=== PATIENT | female | born 1975 | race Caucasian/White ===

== ENCOUNTER 2016-12-13 12:53 | Emergency (ER) | payer OTHER ==
[~2016-12-13] VITALS: Ht 157.5 cm; Wt 77.1 kg
[~2016-12-13 12:53] MED LIST: ATIVAN0.5 M1 PO; FLEXERIL10 MG PO; IBUPROFEN800 MG PO; LAMOTRIGINE200 M2 PO; LIDODERM 5% PAT1 PAT TOP; LIORESAL 10MG T10 MG PO; LISINOPRIL2.5 MG PO; MEDROL DOSEPAK1 PA1 PO; MOBIC 15MG15 MG PO; MOBIC15 MG PO; NORCO 325 MG-51 TAB PO; NORFLEX100 MG PO; OMEPRAZOLE20 M2 PO; PERCOCET 325 MG1 TA2 PO; PREDNISONE 10MG10 M1 PO; SEROQUEL XR150 M1 PO; SYMBICORT 160/41 PUF INH; TESSALON PERLE100 MG PO; TOPAMAX100 M1 PO; TRAMADOL50 MG PO; TRAZODONE HCL100 M1 PO; ULTRAM(MONOGRAP50 MG PO; ZITHROMAX Z-PA250 M1 PO; ZOLPIDEM TARTRA10 M1 PO
[2016-12-13 12:57] VITALS: BP 138/91
--- NOTE | 2016-12-13 13:21 | ED INFLUENZA/URI COMPLAINT ---
History of Present Illness General Chief Complaint: Upper Respiratory Sx/Fever Stated Complaint: ?UPPER RESP INFECTION X 2 WEEKS Source: patient, old records Exam Limitations: no limitations Vital Signs & Intake/Output Vital Signs & Intake/Output Vital Signs Date Time Temp Pulse Resp B/P B/P Pulse O2 O2 Flow FiO2 Mean Ox Delivery Rate 12/13 1257 98.1 85 18 138/91 99 Room Air Allergies Coded Allergies: NO KNOWN ALLERGIES (NKA) (06/20/15) Reconcile Medications Azithromycin (Zithromax) 250 MG TABLET 1 DP PO AD BRONCHITIS 2 the first day followed by 1 for days 2-5 Baclofen (Lioresal) 10 MG TAB 1 TAB PO TIDPRN PRN muscle strain Codeine Phosphate/Guaifenesi (Guaifen-Codeine 100-10 MG/5 Ml) 10 MG-100 MG/5 ML LIQUID 10 ML PO Q6HR PRN COUGH CYCLOBENZAPRINE HCL (Flexeril) 10 MG TAB 1 TAB PO 4 TIMES/DAY PRN MUSCLE SPASM Ibuprofen 800 MG TAB 1 TAB PO 4 TIMES/DAY PRN PAIN Lamotrigine 200 MG TABLET 1 TAB PO DAILY MENTAL HEALTH (Reported) Lorazepam 0.5 MG TABLET 1 TAB PO TID PRN ANXIETY (Reported) Methylprednisolone (Medrol) 1 PAC PAC 0 PO SEE ADMIN CRITERIA neck pain Methylprednisolone. (Medrol) 4 MG TAB.DS.PK 1 DP PO AD BRONCHITIS 6 on day 1 then reduce by one tablet daily until gone Omeprazole 20 MG ECC 1 CAP PO DAILY GI (Reported) OXYCODONE HCL/ACETAMINOPHEN (Percocet 5-325 MG Tablet) 325 MG/5 MG TAB 1-2 TAB PO Q4-6 PRN PRN PAIN Quetiapine Fumarate (Seroquel XR) [address] 1 TAB PO QPM MENTAL HEALTH ( Reported) Topiramate (Topamax 100MG) 100 MG TABLET 1 TAB PO QPM SLEEP (Reported) TRAMADOL HCL (Tramadol) 50 MG TAB 1 TAB PO DAILY PAIN (Reported) Tramadol HCl (Ultram) 50 MG TAB 1-2 TAB PO Q6 PRN severe pain TRAZODONE HCL (Trazodone HCl) 100 MG TABLET 1 TAB PO QPM PRN SLEEP (Reported) Zolpidem Tartrate 10 MG TAB 1 TAB PO QPM SLEEP (Reported) Triage Note: 41 YO FEMALE TO TRIAGE C/O COUGH AND CONGESTION X APPROX 2 WEEKS. STATES COUGH IS PRODUCTIVE. AFEBRILE Triage Nurses Notes Reviewed? yes Onset: Gradual Duration: minute(s): (q), week(s): (2), constant Timing: recent history Severity: mild Severity Numbers: 5 Prior Episodes/Possible Cause: occassional episodes No Modifying Factors: none Associated Symptoms: denies : No Patient currently breastfeeds: No HPI: 41-year-old female with history of asthma presents to ER complaining of two-week history of a productive cough yellow sputum and rhinorrhea congestion. She's been using [id number] remedies without improvement. No shortness of breath fever chills chest pain hemoptysis. Patient is an active smoker 5 cigarettes a day no abdominal pain nausea vomiting or diarrhea. She is carefully symptoms until today. Nothing makes it better or worse. No modifying factors or associated symptoms otherwise (MARYCARMEN FLOWERS) Past History Travel History Traveled to [place] past 21 day No Medical History Any Pertinent Medical History? see below for history Neurological: NONE EENT: NONE Cardiovascular: NONE Respiratory: COPD Gastrointestinal: NONE Hepatic: NONE Renal: NONE Musculoskeletal: chronic back pain, disk herniation (CERVICAL) Psychiatric: bipolar disease, depression Endocrine: NONE . 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 No (MARYCARMEN FLOWERS) Review of Systems Review of Systems Constitutional: Reports: see HPI. All Other Systems: Reviewed and Negative Comments Review of systems: See HPI, All other systems negative. Constitutional, no chills no fever, no malaise no weight loss HEENT: No visual changes no sore throat no congestion, no ear pain Cardiovascular: No chest pain , no palpitation Skin: no rashes, no change in skin Respiratory: No dyspnea cough sputum no hemoptysis GI: No nausea no vomiting, no diarrhea, no bloating/constipation : No dysuria Muscle skeletal: No joint pain, no joint swelling, no back pain, no neck pain, Neurologic: No numbnessno headache Psych: No stress Heme/endocrine: No bruising Immunology: No lymphadenopathy (MARYCARMEN FLOWERS) Physical Exam Physical Exam General Appearance: well developed/nourished, alert, awake Ears, Nose, Throat: normal ENT inspection Comments: Well-developed well-nourished patient in no apparent distress. Head/Face: Atraumatic, no maxillary/frontal sinus tenderness, no facial swelling Eyes: PERRL, EOMI, no conjunctival injection. No nystagmus Ear:External auditory canal and Tympanic membranes clear, no erythema, no FB. Nose: atraumatic.Normal inspection: No bleeding, no septal hematoma Throat: Moist mucous membranes.Pharynx normal. No pharyngeal erythema/exudate seen. No stridor/drooling or assymetry. No swelling or edema. Neck: Supple, no lymphadenopathy, FROM Back: FROM Cardiovascular: Regular rate and rhythms no murmurs rubs or gallops, Respiratory: Chest nontender.There were no bony deformities, no asymmetry. No respiratory distress. Patient speaking in full complete sentences. Breath sounds clear to auscultation bilaterally: NO W/R/R Extremities: full range of motion Neuro: awake, alert, and oriented to person, place and time. There were no obvious focal neurologic abnormalities. Skin: Warm & dry;No appreciable rash on exposed skin Psych: Mood affect normal, normal memory normal judgment. Core Measures Severe Sepsis Present: No Septic Shock Present: No (MARYCARMEN FLOWERS) Progress Differential Diagnosis: influenza, pneumonia, pharyngitis, sinusitis, bronchitis Plan of Care: I had an extensive conversation regarding need for close follow up with their primary care physician this week as well as return precautions. I answered all of their questions, they feel comfortable with the plan and follow-up care. I discussed the medications that they will receive with the patient. I gave them signs and symptoms that could indicate an adverse reaction. I have advised them to limit their activities until they can see how they respond to the medication. Initial ED EKG: none (MARYCARMEN FLOWERS) Departure Departure Time of Disposition: 1327 Disposition: HOME OR SELF CARE Condition: Stable Clinical Impression Primary Impression: Bronchitis Referrals: DAR KIM,SHORTY Avila (PCP/Family) Additional Instructions: Z-Xavi as directed, off and S and with codeine use caution as this may make you drowsy. Medrol Dosepak as discussed stop smoking follow-up with your primary care physician and return with any concerns these prescriptions were sent to [facility] Departure Forms: Customer Survey General Discharge Information Prescriptions: Current Visit Scripts Codeine Phosphate/Guaifenesi (Guaifen-Codeine 100-10 MG/5 Ml) 10 ML PO Q6HR PRN COUGH #200 ML Azithromycin (Zithromax) 1 DP PO AD #6 TAB 2 the first day followed by 1 for days 2-5 Methylprednisolone. (Medrol) 1 DP PO AD #1 DP 6 on day 1 then reduce by one tablet daily until gone (MARYCARMEN FLOWERS) PA/LIBRARY PARAPROFESSIONAL Co-Sign Statement Statement: ED Attending supervision documentation- I saw and evaluated the patient. I have also reviewed all the pertinent lab results and diagnostic results. I agree with the findings and the plan of care as documented in the PA's/LIBRARY PARAPROFESSIONAL's documentation. x I have reviewed the ED Record and agree with the PA's/LIBRARY PARAPROFESSIONAL's documentation. [] Additions or exceptions (if any) to the PAs/LIBRARY PARAPROFESSIONAL's note and plan are summarized below: [] (MARSHA KIM,EDWAR)
[2016-12-13] MEDS ORDERED: GUAIFEN-CODEIN118 M1 PO (13:28)
[2016-12-13] MEDS ORDERED: MEDROL4 M2 PO (13:28)
[2016-12-13] MEDS ORDERED: ZITHROMAX250 M2 PO (13:28)
== END 2016-12-13 14:20 ==
LOC: ERH 12:53
DX: J40 Bronchitis, not specified as acute or chronic (principal); F17.210 Nicotine dependence, cigarettes, uncomplicated

== ENCOUNTER 2016-12-18 13:16 | Emergency (ER) | payer OTHER ==
[~2016-12-18] VITALS: Ht 157.5 cm; Wt 77.1 kg
[~2016-12-18 13:16] MED LIST changes: +GUAIFEN-CODEIN118 M1 PO; +MEDROL4 M2 PO; +ZITHROMAX250 M2 PO
[2016-12-18] MEDS ORDERED: DAILY MULTIPLE1 EACH PO (13:47)
--- NOTE | 2016-12-18 13:47 | ED GENERAL ADULT ---
History of Present Illness General Chief Complaint: General Adult Stated Complaint: DX WITH BRONCHITIS 12/13, SYMPTOMS NO BETTER Source: patient Exam Limitations: no limitations Vital Signs & Intake/Output Vital Signs & Intake/Output ED Intake and Output 12/19 0000 12/18 1200 Intake Total Output Total Balance Patient 170 lb Weight Weight Reported by Patient Measurement Method Allergies Coded Allergies: NO KNOWN ALLERGIES (NKA) (06/20/15) Reconcile Medications Albuterol Sulfate (Proair Hfa) 90 MCG HFA.AER.AD 2 PUF INH Q4-6 PRN PRN shortness of breath Codeine Phosphate/Guaifenesi (Guaifen-Codeine 100-10 MG/5 Ml) 10 MG-100 MG/5 ML LIQUID 10 ML PO Q6HR PRN COUGH Ibuprofen 800 MG TABLET 1 TAB PO TID PRN PAIN (Reported) Lamotrigine 200 MG TABLET 1 TAB PO DAILY MENTAL HEALTH (Reported) Lorazepam (Ativan) 0.5 MG TABLET 1 TAB PO BIDP PRN ANXIETY (Reported) Multivitamin (Daily Multiple Vitamin) 1 EACH TABLET 1 TAB PO DAILY VITAMIN SUPPORT (Reported) Omeprazole 20 MG CAPSULE.DR 1 CAP PO DAILY GI (Reported) Quetiapine Fumarate (Seroquel XR) 150 MG TAB.ER.24H 1 TAB PO QPM MENTAL HEALTH (Reported) Topiramate (Topamax) 100 MG TABLET 1 TAB PO QPM SLEEP (Reported) Trazodone HCl 100 MG TABLET 1 TAB PO QPM PRN SLEEP (Reported) Zolpidem Tartrate 10 MG TABLET 1 TAB PO QPM SLEEP (Reported) Triage Note: 41 Y/O FEMALE C/O BILATERAL FLANK PAIN X 1 WEEK. STATES SHE RECENTLY FINISHED COURSE OF ANTIBIOTICS FOR UTI AND WAS TOLD SHE COULD HAVE A KIDNEY INFECTION. ALSO FINISHED ANTIBIOTICS YESTERDAY FOR BRONCHITIS. AFEBRILE. Triage Nurses Notes Reviewed? yes Onset: 1 week ago Duration: day(s): Timing: constant : No Patient currently breastfeeds: No HPI: 41-year-old female with a history of COPD, bipolar disorder, anxiety, disc herniation, chronic back pain presenting with new cough productive of green sputum 1 week. Denies fevers or URI symptoms. Seen in the ED 5 days ago and diagnosed with bronchitis, given Z-Xavi and Medrol Dosepak which she has since finished without improvement. States that she has cut down on smoking, currently smoking 2-3 cigarettes per day. Patient also complaining of bilateral mid back pain 2-3 weeks. Recently treated by primary care provider for UTI, finished course of antibiotics with resolution of urinary symptoms. Reports sharp bilateral mid back pain that radiates to lower back, worse with movements and prolonged periods of sitting. States that back pain feels similar to her chronic chronic back pain, has not tried anything for pain relief at home. Denies fevers, IV drug use, saddle paresthesias, urinary/bowel incontinence/retention. (ADELFO KENNY PA-C) Past History Travel History Traveled to [place] past 21 day No Medical History Any Pertinent Medical History? see below for history Neurological: NONE EENT: NONE Cardiovascular: NONE Respiratory: COPD Gastrointestinal: NONE Hepatic: NONE Renal: NONE Musculoskeletal: chronic back pain, disk herniation (CERVICAL) Psychiatric: bipolar disease, depression Endocrine: NONE . 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 No (ADELFO KENNY PA-C) Review of Systems Review of Systems Constitutional: Denies: chills, fever, weakness. Respiratory: Reports: cough, sputum production, wheezing. Denies: hemoptysis. Cardiovascular: Denies: chest pain. GI: Denies: abdominal pain, diarrhea, nausea, vomiting. Genitourinary: Denies: discharge, dysuria, hematuria, urgency. (ADELFO KENNY PA-C) Physical Exam Physical Exam General Appearance: well developed/nourished, no apparent distress Head: atraumatic Respiratory: wheezing, No respiratory distress, no hypoxia, no tachypnea Cardiovascular: regular rate/rhythm Gastrointestinal: soft, non-tender, no CVA tenderness Back: normal inspection, normal range of motion, no vertebral tenderness Core Measures ACS in differential dx? No CVA/TIA Diagnosis: No Severe Sepsis Present: No Septic Shock Present: No (ADELFO KENNY PA-C) Progress Differential Diagnoses I considered the following diagnoses in my evaluation of the patient: [ Bronchitis versus COPD exacerbation versus pneumonia.] Following diagnoses were also considered: Musculoskeletal back strain versus pyelonephritis versus epidural abscess versus cauda equina. Plan of Care: Orders Procedure Date/time Status AEROSOL (GEN) 12/18 1426 Complete AEROSOL (GEN) 12/18 1416 Complete XRY-CHEST XRAY, PA AND LATERAL 12/18 1345 Active CULTURE,URINE 12/18 1325 Active URINALYSIS 12/18 1325 Complete Laboratory Tests 12/18/16 1343: Urinalysis LIGHT H, Urine Color YEL, Urine Clarity HAZY H, Urine pH 6.0, Ur Specific Okay >= 1.030, Urine Protein NEG, Urine Ketones NEG, Urine Nitrite NEG, Urine Bilirubin NEG, Urine Urobilinogen 0.2, Ur Leukocyte Esterase SMALL H , Ur Microscopic SEDIMENT EXAMINED, Urine RBC RARE, Urine WBC 3-5 H, Ur Epithelial Cells MANY H, Urine Bacteria MANY H, Urine Hemoglobin NEG, Urine Glucose NEG Microbiology 12/18 1343 URINE ROUT: Urine Culture - RECD Low suspicion for pneumonia but given return visit will check chest x-ray. Will treat with DuoNeb 3 to alleviate wheezing. --> CXR neg for PNA, pt already aware of pre-exisitng pulmonary nodules and is followed by her PMD. Given albuterol inhaler for symptomatic relief. No need for additional steroids or abx as pt just recently completed a sufficient course. Urine was not a clean catch, however was nitrite negative and only had 3-5 white blood cells. This combined with resolution of dysuria status post antibiotic course there is low suspicion for persistent UTI. Furthermore with absence of fevers or CVA tenderness there is low suspicion for pyelonephritis. Likely with acute on chronic musculoskeletal back pain. Instructed to apply warm compresses and use NSAIDs as needed for pain. (EFRAÍN FERNANDEZ,ADELFO) Initial ED EKG: none (EFRAÍN FERNANDEZ,ADELFO) Departure Departure Disposition: HOME OR SELF CARE Condition: Stable Clinical Impression Primary Impression: Bronchitis Referrals: DAR KIM,SHORTY Avila (PCP/Family) Departure Forms: Customer Survey General Discharge Information Prescriptions: Current Visit Scripts Albuterol Sulfate (Proair Hfa) 2 PUF INH Q4-6 PRN PRN shortness of breath #1 INHAL Comments Use two puffs of albuterol inhaler every 4-6 hours as needed for shortness of breath. Try to decrease tobacco use help alleviate symptoms. Her primary care provider for reevaluation. Return to the ED for any new or worsening symptoms. (EFRAÍN FERNANDEZ,ADELFO) PA/TOE FORMER Co-Sign Statement Statement: ED Attending supervision documentation- [] I saw and evaluated the patient. I have also reviewed all the pertinent lab results and diagnostic results. I agree with the findings and the plan of care as documented in the PA's/TOE FORMER's documentation. [x] I have reviewed the ED Record and agree with the PA's/TOE FORMER's documentation. [] Additions or exceptions (if any) to the PAs/TOE FORMER's note and plan are summarized below: [] (CONSTANTIN TELLEZ DO) Critical Care Note Critical Care Note Critical Care Time: non-applicable (EFRAÍN FERNANDEZ,ADELFO)
[2016-12-18] MEDS ORDERED: IBUPROFEN800 M1 PO (13:48)
[2016-12-18 15:32] VITALS: BP 119/81
[2016-12-18] MEDS ORDERED: PROAIR HFA8.5 GM INH (16:24)
--- NOTE | 2016-12-18 17:09 | RADIOLOGY REPORT ---
EXAMINATION: XR CHEST CLINICAL INFORMATION: Cough productive of green sputum. COMPARISON: 12/23/[address] 07/18/2016. TECHNIQUE: 2 views of the chest were obtained. FINDINGS: No gross consolidation or effusion. No large pulmonary mass. Recent cross-sectional imaging has demonstrated multiple subcentimeter pulmonary nodules. These are not evident on plain radiography. I would consider one additional 24-month of follow up chest CT this July to establish 2 years of stability. This appearance would be most consistent with metastatic disease, however I see no history of malignancy in the radiologic record. On CT, the nodules are somewhat rounded not the typical configuration of intraparenchymal lymph nodes however, CT also demonstrated a shotty increase in the number but not size of mediastinal lymph nodes. Hyalinizing pulmonary nodules can have this appearance. If there has been a hysterectomy (uterus present in 2009), review of uterine pathology advised to exclude low-grade uterine leiomyosarcoma. Cardiac and mediastinal contours are within normal limits and stable with no evidence of lymphadenopathy on plain radiography. Prior cervical fusion. No acute osseous finding. Normal gas pattern. IMPRESSION: No acute cardiopulmonary process. Prior CT scans of the chest have demonstrated multiple small indeterminate pulmonary nodules. Advise 24-month follow up with noncontrast CT scan of the chest in July 2017.
== END 2016-12-18 16:27 ==
LOC: ERH 13:16
DX: J40 Bronchitis, not specified as acute or chronic (principal); Z72.0 Tobacco use; M54.5 Low back pain
CPT/HCPCS: 1263; 81001; 87086

== ENCOUNTER 2018-01-30 15:20 | Emergency (ER) | payer OTHER ==
[~2018-01-30] VITALS: Ht 162.6 cm; Wt 78.0 kg
[~2018-01-30 15:20] MED LIST changes: +BACLOFEN10 M1 PO; +CHERATUSSIN AC118 M1 PO; +DAILY MULTIPLE1 EACH PO; +IBUPROFEN800 M1 PO; +PROAIR HFA8.5 GM INH; +TESSALON PERLE100 M1 PO; +ULTRAM50 M1 PO; +ZITHROMAX500 M2 PO
[2018-01-30 15:25] VITALS: BP 156/97
[2018-01-30] MEDS ORDERED: CYCLOBENZAPRINE10 M1 PO (15:33)
[2018-01-30] MEDS ORDERED: TRAMADOL HCL50 M1 PO (15:33)
--- NOTE | 2018-01-30 15:34 | ED UPPER/LOWER EXTREMITY COMPL ---
History of Present Illness General Chief Complaint: Neck/Upper Back Pain/Injury Stated Complaint: NECK SHOULDER AND BACK PAIN/CHRONIC Source: patient Exam Limitations: no limitations Vital Signs & Intake/Output Vital Signs & Intake/Output Vital Signs Date Time Temp Pulse Resp B/P B/P Pulse O2 O2 Flow FiO2 Mean Ox Delivery Rate 01/30 1525 98.2 80 18 156/97 98 Room Air Allergies Coded Allergies: NO KNOWN ALLERGIES (NKA) (06/20/15) Reconcile Medications Albuterol Sulfate (Proair Hfa) 90 MCG HFA.AER.AD 2 PUF INH Q4-6 PRN PRN shortness of breath Baclofen 10 MG TABLET 1 TAB PO TIDPRN PRN muscle spasm/strain Cyclobenzaprine HCl 10 MG TABLET 1 TAB PO TID spasms Ibuprofen 800 MG TABLET 1 TAB PO TID PRN PAIN (Reported) Lamotrigine 200 MG TABLET 1 TAB PO DAILY MENTAL HEALTH (Reported) Lorazepam (Ativan) 0.5 MG TABLET 1 TAB PO BIDP PRN ANXIETY (Reported) Methylprednisolone. (Medrol) 4 MG TAB.DS.PK 1 DP PO AD INFLAMMATION 6 on day 1 then reduce by one tablet daily until gone Multivitamin (Daily Multiple Vitamin) 1 EACH TABLET 1 TAB PO DAILY VITAMIN SUPPORT (Reported) Omeprazole 20 MG CAPSULE.DR 1 CAP PO DAILY GI (Reported) Quetiapine Fumarate (Seroquel XR) 150 MG TAB.ER.24H 1 TAB PO QPM MENTAL HEALTH (Reported) Topiramate (Topamax) 100 MG TABLET 1 TAB PO QPM SLEEP (Reported) Tramadol HCl 50 MG TABLET 1-2 TAB PO BIDP PRN pain Tramadol HCl (Ultram) 50 MG TABLET 1-2 TAB PO Q6PRN PRN severe pain Trazodone HCl 100 MG TABLET 1 TAB PO QPM PRN SLEEP (Reported) Zolpidem Tartrate 10 MG TABLET 1 TAB PO QPM SLEEP (Reported) Triage Note: 42 YO FEMALE TO TRIAGE FOR EVAL OF PAIN TO L SHOULDER/NECK. STATES HX OF TENDONITIS. STATES NO NEW INJURY. ALSO STATES SHE HAS A TORN ROTATOR CUFF ON THE L SIDE. Triage Nurses Notes Reviewed? yes Onset: Abrupt Duration: day(s): Timing: recent history Severity: moderate, severe Pain/Injury Location: Left: Shoulder. Method of Injury: unknown No Modifying Factors: none : No Patient currently breastfeeds: No HPI: 42-year-old female comes into the emergency room for further evaluation of chronic left shoulder pain. Patient reports that she has a rotator cuff injury. She gets flares of pain intermittently from time to time pain is sharp. Continuous. Worse with range of motion. Denies any other associated symptoms. Comes in for further evaluation. (Rhett Moses) Past History Travel History Traveled to [place] past 21 day No Medical History Any Pertinent Medical History? see below for history Neurological: NONE EENT: NONE Cardiovascular: NONE Respiratory: COPD Gastrointestinal: NONE Hepatic: NONE Renal: NONE Musculoskeletal: chronic back pain, disk herniation (CERVICAL) Psychiatric: bipolar disease, depression Endocrine: NONE . 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 No (Rhett Moses) Review of Systems Review of Systems Constitutional: Reports: no symptoms. EENTM: Reports: no symptoms. Respiratory: Reports: no symptoms. Cardiovascular: Reports: no symptoms. Gastrointestinal/Abdominal: Reports: no symptoms. Genitourinary: Reports: no symptoms. Musculoskeletal: Reports: see HPI. Skin: Reports: no symptoms. Neurological/Psychological: Reports: no symptoms. Hematologic/Endocrine: Reports: no symptoms. Immunological: Reports: no symptoms. All Other Systems: Reviewed and Negative (Rhett Moses) Physical Exam Physical Exam General Appearance: well developed/nourished, mild distress Head: atraumatic Eyes: Bilateral: normal appearance. Ears, Nose, Throat: normal ENT inspection, hearing grossly normal Neck: normal inspection Cardiovascular/Respiratory: no respiratory distress Back: normal inspection Shoulder Left: soft tissue tenderness, limited range of motion, Tenderness over her left trapezius muscle , left deltoid, negative empty can test Neurologic/Tendon: normal sensation, normal motor functions, normal tendon functions, responds to pain, no evidence tendon injury, no pulse deficit Skin: intact, normal color, warm/dry (Rhett Moses) Progress Differential Diagnosis: contusion, dislocation, fracture, sprain, tendon injury, rotator cuff tendinitis, muscle strain, Plan of Care: 01/30/2018 3:42:05 PM This is an acute on chronic issue. Patient will follow-up with orthopedic doctor. Return if any other concerns. Been here for similar symptoms in the past. Treated symptomatically. She understands and agrees a plan of care. (Rhett Moses) Departure Departure Disposition: HOME OR SELF CARE Condition: Stable Clinical Impression Primary Impression: Injury of left rotator cuff Referrals: Theresa KIM,Sharan Avila (PCP/Family) Additional Instructions: Take tramadol and Flexeril as prescribed. Follow-up with orthopedic doctor provided. Return if any concerns worsening symptoms. Please go over all results of today's visit with your primary care doctor. Contact your primary care doctor to let them know you were here in the emergency room. There may be nonspecific findings which may not be related to your visit today here in the emergency room but may require further evaluation and chronic monitoring by your primary care doctor. If you had a laceration today the chance of foreign body always remains. You should follow-up with your primary care doctor for recheck in 3-5 days for a wound check. If you had an x-ray done there is a chance that a fracture could have been missed on initial read and you should follow-up with your primary care doctor for repeat x-rays if symptoms persist. If your blood pressure was elevated here in the emergency room please have rechecked by [facility] primary care doctor within the next 48. If you were prescribed a narcotic here in the emergency room or any type of controlled substances you're not allowed to drive while taking this medication or operate any type of heavy machinery. Narcotics can make you feel lightheaded dizziness nausea and can cause constipation. You may need to pecan picker a stool softener. Thank you for choosing [facility] emergency room. Please return to the emergency room immediately if you have any other concerns worsening of symptoms. Departure Forms: Customer Survey General Discharge Information Prescriptions: Current Visit Scripts Tramadol HCl 1-2 TAB PO BIDP PRN pain #20 TAB Cyclobenzaprine HCl 1 TAB PO TID #30 TAB (Rhett Moses) PA/REINFORCING IRON WORKER HELPER Co-Sign Statement Statement: ED Attending supervision documentation- [] I saw and evaluated the patient. I have also reviewed all the pertinent lab results and diagnostic results. I agree with the findings and the plan of care as documented in the PA's/REINFORCING IRON WORKER HELPER's documentation. [x] I have reviewed the ED Record and agree with the PA's/REINFORCING IRON WORKER HELPER's documentation. [] Additions or exceptions (if any) to the PAs/REINFORCING IRON WORKER HELPER's note and plan are summarized below: [] (Az Miller DO)
== END 2018-01-30 15:44 ==
LOC: ERH 15:20
DX: S46.002A Unspecified injury of muscle(s) and tendon(s) of the rotator cuff of left shoulder, initial encounter (principal); X58.XXXA Exposure to other specified factors, initial encounter; Y92.9 Unspecified place or not applicable; Y93.9 Activity, unspecified